=== PATIENT | female | born 1970 | race Caucasian/White ===

== ENCOUNTER → 2017-06-26 | Day surgery (SDC) | payer BC ==
[~2017-06-26] MED LIST: BUPIVACAINE/EPINEPHRINE 0.25% PF 30 ML VIAL ONE; KETOROLAC TROMETHAMINE 30 MG/ML (IVP) VIAL ONE; MIDAZOLAM HCL 2 MG/2 ML VIAL ONE; MORPHINE SULFATE 4 MG/ML INJ ONE; ONDANSETRON HCL 4 MG/2 ML VIAL IV PUSH ONE; PROPOFOL 200 MG/20 ML AMP IV ONE; SODIUM CHLOR 0.9% 250 ML BAG IV ONE; VANCOMYCIN HCL 1000 MG VIAL ONE; Z.0.NO CURRENT MEDS; metroNIDAZOLE 500 MG INJ 100 ML IV ONE
--- NOTE | 2017-06-26 13:42 | TN ---
cc: MAUREEN QUIROZ M.D. DATE OF OPERATION 06/26/2017 PREOPERATIVE DIAGNOSIS Chronic cholecystitis. POSTOPERATIVE DIAGNOSIS Chronic cholecystitis. PROCEDURE PERFORMED Laparoscopic cholecystectomy. SURGEON Maureen Quiroz MD [facility] Sheryl RAMIREZ ANESTHESIA General endotracheal. COMPLICATIONS None. INDICATION FOR PROCEDURE Ms. Gonsalves is a pleasant 47-year-old female who has had problems with chronic cholecystitis. She has had multiple bouts of right upper quadrant postprandial abdominal pain after eating fatty and greasy meals. She had a gallbladder ultrasound that demonstrated thickened gallbladder as well as gallstones. She was advised to undergo cholecystectomy. The patient initially tried diet modification but she continued to have attacks. She returned to the office and requested cholecystectomy. The risks and benefits of open laparoscopic cholecystectomy was discussed with her and she was agreeable. DETAILS The patient was identified, brought to the operating room and placed supine on the operating table. After adequate general endotracheal anesthesia was achieved, the abdomen was prepped and draped in standard surgical fashion. The infraumbilical space was anesthetized with 0.25% Marcaine. Infraumbilical incision was made. Dissection was carried down through the subcutaneous tissue and midline fascia. The midline fascia was then incised sharply. A finger was then placed in the peritoneal cavity without difficulty. Blunt balloon trocar was inserted and the abdomen was insufflated to 15 mmHg using CO2 gas. Next, two 5-mm trocars were placed in the right upper quadrant after anesthetizing the skin and subcutaneous tissue with 0.25% Marcaine. The gallbladder was identified. The gallbladder was noted to be contracted and very elongated and thickened. The gallbladder was retracted cephalad. The gallbladder neck was then carefully dissected. The cystic artery was first identified anteriorly and it was dissected out and confirmed going into the neck of the gallbladder. It was clipped twice proximally, once distally and then divided. The gallbladder neck was then carefully dissected. The gallbladder neck was seen tapering down to the cystic duct. The cystic duct was dissected back a little more proximally. There was noted to be a moderate amount of inflammatory change at the gallbladder neck and therefore I elected to do a dome-down technique to confirm this was the gallbladder/cystic duct junction. The gallbladder was then taken down in retrograde fashion using electrocautery Bovie. Once we got the gallbladder mobilized up completely, we could see the neck of the gallbladder tapering down onto the cystic duct. Therefore the cystic duct was then clipped twice proximally, once distally and then divided. There was a posterior branch of the artery identified during this dissection and it was clipped twice proximally. Once we did this the gallbladder was removed. The gallbladder was brought out through the infraumbilical port in an EndoCatch. The gallbladder was inspected. The neck of the gallbladder was clearly identified with the cystic duct stump, clipped off proximally at the neck. The gallbladder was sent to pathology for analysis. Next the abdominal cavity was carefully visualized. The liver bed was completely hemostatic. Clips on the cystic artery and cystic duct stump were confirmed there was no evidence of leakage of bile and no evidence of bleeding. 0.25% Marcaine was injected in the operative field. All ports were then removed under direct vision. The midline fascia was repaired with a 0 Vicryl in a [id number] fashion. The skin was closed with 4-0 Vicryl. The patient tolerated the procedure well, was awakened and brought to Recovery in stable condition. Please note the [employer] enrichment assistant was medically necessary due to her surgical expertise and extensive knowledge of my surgical technique. MD CHANEL Pak/ANNEMARIE /12:52 PM /1:19 PM
== END | disposition home or self-care (01) ==
LOC: ESDC 09:41
PROVIDERS: ATTEND Surgery Trauma Surgery
DX: K80.10 Calculus of gallbladder with chronic cholecystitis without obstruction (principal)
CPT/HCPCS: 00790; 47562; 88304; J1885; J2250; J2270; J2405; J3370; J7050

== ENCOUNTER 2017-08-06 23:08 | Emergency (ER) | payer BC ==
[~2017-08-06] VITALS: Ht 162.6 cm; Wt 60.0 kg
[~2017-08-06 23:08] MED LIST changes: -BUPIVACAINE/EPINEPHRINE 0.25% PF 30 ML VIAL ONE; -KETOROLAC TROMETHAMINE 30 MG/ML (IVP) VIAL ONE; -MIDAZOLAM HCL 2 MG/2 ML VIAL ONE; -MORPHINE SULFATE 4 MG/ML INJ ONE; -ONDANSETRON HCL 4 MG/2 ML VIAL IV PUSH ONE; -PROPOFOL 200 MG/20 ML AMP IV ONE; -SODIUM CHLOR 0.9% 250 ML BAG IV ONE; -VANCOMYCIN HCL 1000 MG VIAL ONE; -metroNIDAZOLE 500 MG INJ 100 ML IV ONE
[2017-08-06 23:11] VITALS: BP 136/84; PULSE 91; RESP 18; TEMP 97.6; O2SAT 100
[2017-08-06] MEDS ORDERED: SODIUM CHLORIDE 0.9% FLUSH 10 ML FLUSH IVF PRN (23:45)
[2017-08-07 00:06] VITALS: RESP 18; O2SAT 98
--- NOTE | 2017-08-07 00:29 | RADRPT ---
EXAM DATE/TIME: 08/06/2017 23:45 [facility] COMPARISON: No previous studies available for comparison. INDICATIONS : Substernal chest pain. MEDICAL HISTORY : None. SURGICAL HISTORY : None. ENCOUNTER: Initial ACUITY: 1 day PAIN SCORE: 5/10 LOCATION: chest Substernal. FINDINGS: The heart size is normal. There is minimal increased density at the right lateral base. Left lung is clear. No significant effusion is seen. CONCLUSION: Minimal suspected atelectasis or consolidation at the right base. Edy Webster MD on August 07, 2017 at 0:24 Board Certified Radiologist. This report was verified electronically.
[2017-08-07 00:36] LABS: AUTOMATED NEUTROPHIL # 7.8 TH/MM3 (1.8-7.7); BASOPHIL % 0.2 % (0.0-2.0); EOSINOPHIL % 0.4 % (0.0-4.0); HEMATOCRIT 41.6 % (35.0-46.0); HEMOGLOBIN 14.2 GM/DL (11.6-15.3); LYMPH % 15.1 % (9.0-44.0); LYMPHOCYTE # 1.5 TH/MM3 (1.0-4.8); MEAN CELL VOLUME 96.7 FL (80.0-100.0); MEAN CORPUSCULAR HEMOGLOBIN 32.9 PG (27.0-34.0); MEAN PLATELET VOLUME 7.2 FL (7.0-11.0); MONO % 5.1 % (0.0-8.0); MONOCYTE # 0.5 TH/MM3 (0-0.9); NEUT % 79.2 % (16.0-70.0); PLATELET COUNT 329 TH/MM3 (150-450); RED CELL DISTRIBUTION WIDTH 14.1 % (11.6-17.2); WHITE BLOOD COUNT 9.9 TH/MM3 (4.0-11.0)
[2017-08-07 00:37] LABS: PROTHROMBIN TIME - PATIENT 9.9 SEC (9.8-11.6)
[2017-08-07 00:38] LABS: D-DIMER 0.72 MG/L FEU (0.00-0.50)
[2017-08-07 00:45] LABS: ALBUMIN 3.6 GM/DL (3.4-5.0); AST (GOT) 295 U/L (15-37); BICARBONATE 26.6 MEQ/L (21.0-32.0); BLOOD UREA NITROGEN 11 MG/DL (7-18); CALCIUM 8.4 MG/DL (8.5-10.1); CHLORIDE 107 MEQ/L (98-107); CREATININE 0.97 MG/DL (0.50-1.00); GLOMERULAR FILTRATION RATE 61 ML/MIN (>89); GLUCOSE,RANDOM 105 MG/DL (74-106); MAGNESIUM 2.3 MG/DL (1.5-2.5); SODIUM (NA) 138 MEQ/L (136-145)
[2017-08-07] MEDS ORDERED: ALUMINUM/MAGNESIUM/SIMETH 30 ML CUP PO ONE (00:45)
[2017-08-07] MEDS ORDERED: KETOROLAC TROMETHAMINE 30 MG/ML (IVP) VIAL IV PUSH ONE (00:45)
[2017-08-07 00:46] LABS: ALT (GPT) 155 U/L (10-53)
[2017-08-07 00:50] LABS: ALKALINE PHOSPHATASE 95 U/L (45-117); TOTAL BILIRUBIN ADULT 0.7 MG/DL (0.2-1.0); TOTAL PROTEIN 7.3 GM/DL (6.4-8.2); TROPONIN I LESS THAN 0.02 NG/ML (0.02-0.05)
[2017-08-07 01:23] VITALS: BP 149/81; PULSE 89; RESP 18; O2SAT 100
[2017-08-07] MEDS ORDERED: IOHEXOL 350 MG/ML 10 ML VIAL (for RAD DIAG) IVCONTRAST ONE (02:35)
--- NOTE | 2017-08-07 02:47 | RADRPT ---
EXAM DATE/TIME: 08/07/2017 02:13 [facility] COMPARISON: No previous studies available for comparison. INDICATIONS : Chest pain. IV CONTRAST: 70 cc Omnipaque 350 (iohexol) IV RADIATION DOSE: 6.51 CTDIvol (mGy) MEDICAL HISTORY : None SURGICAL HISTORY : None. ENCOUNTER: Initial ACUITY: 1 day PAIN SCALE: 5/10 LOCATION: Bilateral chest TECHNIQUE: Volumetric scanning of the chest was performed using a pulmonary embolism protocol MIP images were re constructed. Using automated exposure control and adjustment of the mA and/or kV according to patien t size, radiation dose was kept as low as reasonably achievable to obtain optimal diagnostic quality images. DICOM format image data is available electronically for review and comparison. Follow-up recommendations for detected pulmonary nodules are based at a minimum on nodule size and pa tient risk factors according to Fleischner Society Guidelines. FINDINGS: PULMONARY ARTERIES: No filling defects are seen in the pulmonary arteries through the segmental level. LUNGS: There are several areas of increased density within the bronchial system on the right side including the bronchus supplying the right middle lobe and areas involving the bronchi is supplying the basilar segments of the right lower lobe. This increased density seen within the central left bronchus. Ther e is interstitial disease seen in the lower lungs bilaterally. PLEURAE: There is no pleural thickening or pleural effusion. MEDIASTINUM: There is good visualization of the great vessels of the middle mediastinum. No evidence of mediastin al or hilar adenopathy/mass. MUSCULOSKELETAL: Within normal limits for patient age. MISCELLANEOUS: The visualized upper abdominal organs demonstrate no acute abnormality. There is a 1 cm hypodense mas s in the left lobe of the liver. CONCLUSION: 1. No pulmonary embolus. 2. Multiple areas of suspected mucous in the bronchial system. 3. Interstitial infiltrates in the lower lobes bilaterally. This appears postinflammatory. Edy Webster MD on August 07, 2017 at 2:39 Board Certified Radiologist. This report was verified electronically.
[2017-08-07] MEDS ORDERED: VENTAER INH (03:50)
[2017-08-07] MEDS ORDERED: ZITHTAB PO (03:50)
[2017-08-07] MEDS ORDERED: MEDR4PAK PO (03:50)
--- NOTE | 2017-08-07 03:50 | PD ---
HPI . Chest pain Chief Complaint: Chest Pain Time Seen by Provider: 23:35 Travel History International Travel<30 days: No Contact w/Intl Traveler<30days: No Traveled to known affect area: No History of Present Illness HPI 47-year-old female status post cholecystectomy early June approximately half ago, presents with substernal low chest pain is pleuritic worse with movement worse with deep breath, somewhat chronic cough for the past few weeks, the patient also notes today and underlying dull heaviness in her chest. She also notes some difficulty getting a deep breath. Patient has no history of confined travel or sedentary period, however the patient does state that she works long hours sitting at a desk. Patient denies leg pain or swelling, quantified fever, or productive cough. Patient is not a smoker [facility] Past Medical History Narrative Medical Past medical history reviewed Asthma: Yes Diminished Hearing: No ?: Not Past Surgical History Cholecystectomy: Yes (JUN 2017) Social History Alcohol Use: No Tobacco Use: No Substance Use: No Allergies-Medications (Allergen,Severity, Reaction): Coded Allergies: No Known Allergies (Unverified Allergy, Unknown, 08/07/17) Reported Meds & Prescriptions Reported Meds & Active Scripts Active Reported No Current Meds (Miscellaneous Medication) Misc Narrative Medication Allergies and medications reviewed Review of Systems Except as stated in HPI: all other systems reviewed are Neg General / Constitutional: No: Fever Eyes: No: Visual changes HENT: No: Headaches Cardiovascular: Positive: Chest Pain or Discomfort, No: Palpitations, Irregular Rhythm, Tachycardia Respiratory: Positive: Cough, Shortness of Breath, Pleuritic Pain, No: Wheezing , Sneezing, Orthopnea, Hemoptysis, Stridor, Night Sweats Gastrointestinal: No: Abdominal Pain Genitourinary: No: Dysuria Musculoskeletal: No: Pain Skin: No Rash Neurologic: No: Weakness Psychiatric: No: Depression Endocrine: No: Polydipsia Hematologic/Lymphatic: No: Easy Bruising Physical Exam Narrative GENERAL: Awake alert oriented 3 no acute distress SKIN: Warm and dry. Color is slightly sallow, no cyanosis diaphoresis or pallor HEAD: Atraumatic. Normocephalic. EYES: Pupils equal and round. No scleral icterus. No injection or drainage. ENT: No nasal bleeding or discharge. Mucous membranes pink and moist. NECK: Trachea midline. No JVD. Supple full range of motion CARDIOVASCULAR: Regular rate and rhythm. S1-S2 no murmurs or gallops RESPIRATORY: No accessory muscle use. Slight rhonchi and wheeze to forced exhalation, slight splinting with deep breath. Breath sounds equal bilaterally. GASTROINTESTINAL: Abdomen soft, non-tender, nondistended. Hepatic and splenic margins not palpable. MUSCULOSKELETAL: Extremities without clubbing, cyanosis, or edema. No obvious deformities. NEUROLOGICAL: Awake and alert. No obvious cranial nerve deficits. Motor grossly within normal limits. Five out of 5 muscle strength in the arms and legs. Normal speech. PSYCHIATRIC: Appropriate mood and affect; insight and judgment normal. Data Data Last Documented VS Vital Signs Date Time Temp Pulse Resp B/P (MAP) Pulse Ox O2 Delivery O2 Flow Rate FiO2 08/07/17 01:23 89 18 149/81 (103) 100 Room Air 08/06/17 23:11 97.6 Orders Orders Electrocardiogram (08/06/17 23:35) B-Type Natriuretic Peptide (08/06/17 23:35) Ckmb (Isoenzyme) Profile (08/06/17 23:35) Complete Blood Count With Diff (08/06/17 23:35) Comprehensive Metabolic Panel (08/06/17 23:35) D-Dimer (08/06/17 23:35) Magnesium (Mg) (08/06/17 23:35) Prothrombin Time / Inr (Pt) (08/06/17 23:35) Act Partial Throm Time (Ptt) (08/06/17 23:35) Troponin I (08/06/17 23:35) Chest, Single Ap (08/06/17 23:35) Ecg Monitoring (08/06/17 23:35) Bilateral Bp Monitoring (08/06/17 23:35) Iv Access Insert/Monitor (08/06/17 23:35) Oximetry (08/06/17 23:35) Oxygen Administration (08/06/17 23:35) Sodium Chloride 0.9% Flush (Ns Flush) (08/06/17 23:45) Drug Screen, Random Urine (08/06/17 23:35) Al-Mag Hy-Si 40-40-4 Mg/Ml Liq (Mag-Al P (08/07/17 00:45) Ketorolac Inj (Toradol Inj) (08/07/17 00:45) Ct Pulmonary Angiogram (08/07/17 ) Lipase (08/07/17 01:39) Iohexol 350 Inj (Omnipaque 350 Inj) (08/07/17 02:35) Labs Laboratory Tests Test 08/07/17 00:02 08/07/17 01:10 White Blood Count 9.9 TH/MM3 Red Blood Count 4.30 MIL/MM3 Hemoglobin 14.2 GM/DL Hematocrit 41.6 % Mean Corpuscular Volume 96.7 FL Mean Corpuscular Hemoglobin 32.9 PG Mean Corpuscular Hemoglobin Concent 34.0 % Red Cell Distribution Width 14.1 % Platelet Count 329 TH/MM3 Mean Platelet Volume 7.2 FL Neutrophils (%) (Auto) 79.2 % Lymphocytes (%) (Auto) 15.1 % Monocytes (%) (Auto) 5.1 % Eosinophils (%) (Auto) 0.4 % Basophils (%) (Auto) 0.2 % Neutrophils # (Auto) 7.8 TH/MM3 Lymphocytes # (Auto) 1.5 TH/MM3 Monocytes # (Auto) 0.5 TH/MM3 Eosinophils # (Auto) 0.0 TH/MM3 Basophils # (Auto) 0.0 TH/MM3 CBC Comment DIFF FINAL Differential Comment Prothrombin Time 9.9 SEC Prothromb Time International Ratio 1.0 RATIO Activated Partial Thromboplast Time 26.5 SEC D-Dimer Quantitative (PE/DVT) 0.72 MG/L FEU Blood Urea Nitrogen 11 MG/DL Creatinine 0.97 MG/DL Random Glucose 105 MG/DL Total Protein 7.3 GM/DL Albumin 3.6 GM/DL Calcium Level 8.4 MG/DL Magnesium Level 2.3 MG/DL Alkaline Phosphatase 95 U/L Aspartate Amino Transf (AST/SGOT) 295 U/L Alanine Aminotransferase (ALT/SGPT) 155 U/L Total Bilirubin 0.7 MG/DL Sodium Level 138 MEQ/L Potassium Level 3.7 MEQ/L Chloride Level 107 MEQ/L Carbon Dioxide Level 26.6 MEQ/L Anion Gap 4 MEQ/L Estimat Glomerular Filtration Rate 61 ML/MIN Total Creatine Kinase 70 U/L Troponin I LESS THAN 0.02 NG/ML B-Type Natriuretic Peptide 24 PG/ML Lipase 169 U/L Urine Opiates Screen NEG Urine Barbiturates Screen NEG Urine Amphetamines Screen NEG Urine Benzodiazepines Screen NEG Urine Cocaine Screen NEG Urine Cannabinoids Screen NEG [facility] Medical Decision Making Medical Screen Exam Complete: Yes Emergency Medical Condition: Yes Medical Record Reviewed: Yes Differential Diagnosis Pleuritis, bronchitis, pulmonary embolus, angina, myocardial infarction, choledocholithiasis, reflux esophagitis, pancreatitis Narrative Course Patient's laboratory examination reviewed, no significant abnormalities. With the exception of patient's had a mildly elevated d-dimer at 0.72. Chest x-ray negative. EKG normal sinus rhythm at 80 bpm, nonischemic, intervals normal CT chest pulmonary angiogram, no pulmonary embolus seen, however patient has bilateral interstitial infiltrates and inflammation. . Patient feels improved with anti-inflammatories steroids and albuterol Atrovent treatment given earlier. Continue his outpatient Diagnosis Primary Impression: Bronchitis Patient Instructions: Acute Bronchitis (ED), General Instructions Additional Instructions: Zithromax Z-LANDON as prescribed. Medrol Dosepak as prescribed. Albuterol 2 puffs every 4-6 hours as needed for wheezing or cough. Motrin for pain Follow- up with your doctor. Return for worsening Scripts Albuterol 18 GM Inh (Ventolin Hfa 18 GM Inh) 90 Mcg/Act Aer 2 PUFF INH Q4-6H Y for SHORTNESS OF BREATH, #1 INHALER 0 Refills Prov: Sudarshan Echeverria MD 08/07/17 Methylprednisolone Dosepak (Medrol Dosepak) 4 Mg Dspk 4 MG PO DIRECTED, #1 DSPK 0 Refills Per Pharmacist direction Prov: Sudarshan Echeverria MD 08/07/17 Azithromycin (Zithromax Z-Landon) 250 Mg Dspk 250 MG PO DIRECTED for Infection, #1 DSPK 0 Refills 500 MG (2 tabs) day 1, then 1 tab days 2-5. Prov: Sudarshan Echeverria MD 08/07/17 Disposition: DISCHARGE HOME Condition: Stable Sudarshan Echeverria MD Aug 07, 2017 03:50
--- NOTE | 2017-08-07 09:45 | EKG ---
Date Performed: 08/06/2017 Time Performed: 23:58:14 PTAGE: 47 years EKG: Sinus rhythm WITH SHORT ID INTERVAL BORDERLINE ECG PREVIOUS TRACING : 04/25/2012 21.24 DOCTOR: Maco Gonsales Interpretating Date/Time 08/07/2017 09:44:13
== END 2017-08-07 04:00 | disposition home or self-care (01) ==
LOC: NEPC 23:08
DX: J40 Bronchitis, not specified as acute or chronic (principal); R06.02 Shortness of breath
CPT/HCPCS: 71045; 71275; 80053; 80307; 82550; 83690; 83735; 83880; 84484; 85025; 85379; 85610; 85730; 93005; 96374; 99285; J1885; Q9967